=== PATIENT | female | born 1985 | race African-American/Black ===

== ENCOUNTER 2021-10-22 15:14 | Emergency (ER) | payer MEDICAID ==
[~2021-10-22] VITALS: Ht 157.5 cm; Wt 61.8 kg
[2021-10-22 15:28] VITALS: BP 98/59
[2021-10-22 18:28] LABS: CLARITY URINE CLEAR (CLEAR); COLOR URINE YELLOW (YELLOW); KETONES URINE NEGATIVE (NEGATIVE); LEUKOCYTE ESTERASE URINE TRACE (NEGATIVE); NITRITE URINE NEGATIVE (NEGATIVE); OCCULT BLOOD URINE NEGATIVE (NEGATIVE); PH URINE 5.5 (4.5-8.0); PROTEIN URINE NEGATIVE (NEGATIVE); SPECIFIC GRAVITY URINE 1.024 (1.005-1.030); UROBILINOGEN URINE 0.2 E.U./dL (0.2-1.0)
[2021-10-22] MEDS ORDERED: CEPH500C2 MT (18:58)
== END 2021-10-22 19:12 | disposition home or self-care (01) ==
LOC: ER 15:14
DX: R05.9 Cough, unspecified (principal); N39.0 Urinary tract infection, site not specified; K21.9 Gastro-esophageal reflux disease without esophagitis; R56.9 Unspecified convulsions; Z20.822 Contact with and (suspected) exposure to COVID-19; Z98.890 Other specified postprocedural states
CPT/HCPCS: 81003; 87426; 99283

== ENCOUNTER 2023-01-01 20:18 | Emergency (ER) | payer MEDICAID ==
[~2023-01-01] VITALS: Ht 157.5 cm; Wt 56.0 kg
[~2023-01-01 20:18] MED LIST: CEPH500C2 MT
[2023-01-01 20:26] VITALS: BP 97/71
[2023-01-01 21:25] LABS: BASOPHILS % 0.1 % (0.0-2.0); EOSINOPHILS % 1.2 % (0.0-5.0); HEMATOCRIT. 40.6 % (36.0-48.0); HEMOGLOBIN. 13.8 g/dL (12.0-16.0); LYMPHOCYTES % 36.4 % (20.0-50.0); MEAN CORPUSCULAR HEMOGLOBIN 33.1 pg (28.0-32.0); MEAN CORPUSCULAR VOLUME 97.4 fL (81.0-99.0); MEAN PLATELET VOLUME 7.7 fl (7.4-10.4); MONOCYTES % 6.3 % (2.0-8.0); PLATELET 182 x1000/uL (130-400); RED BLOOD CELL COUNT 4.17 mill/uL (4.2-5.4); RED CELL DISTRIBUTION WIDTH 13.4 % (11.6-14.6)
[2023-01-01 21:31] LABS: CHLORIDE 113 mEq/L (98-107)
[2023-01-02 01:12] LABS: CLARITY URINE CLEAR (CLEAR); COLOR URINE YELLOW (YELLOW); KETONES URINE NEGATIVE (NEGATIVE); LEUKOCYTE ESTERASE URINE 2+ (NEGATIVE); NITRITE URINE POSITIVE (NEGATIVE); OCCULT BLOOD URINE NEGATIVE (NEGATIVE); PH URINE 5.5 (4.5-8.0); PROTEIN URINE NEGATIVE (NEGATIVE); SPECIFIC GRAVITY URINE 1.022 (1.005-1.030); UROBILINOGEN URINE 0.2 E.U./dL (0.2-1.0)
[2023-01-02] MEDS ORDERED: CEPH500C2 MT (01:45)
[2023-01-02] MEDS ORDERED: LOPE2CAP MT (02:22)
== END 2023-01-02 01:59 | disposition home or self-care (01) ==
LOC: ER 20:18
DX: R39.15 Urgency of urination (principal); E03.9 Hypothyroidism, unspecified; Z90.49 Acquired absence of other specified parts of digestive tract; Z98.890 Other specified postprocedural states
CPT/HCPCS: 36415; 80053; 81003; 85025; 87186; 99283

== ENCOUNTER 2023-02-06 19:40 | Emergency (ER) | payer MEDICAID ==
[~2023-02-06] VITALS: Ht 157.5 cm; Wt 61.0 kg
[~2023-02-06 19:40] MED LIST changes: +LOPE2CAP MT
[2023-02-06 20:00] VITALS: BP 104/42
== END 2023-02-06 20:50 | disposition home or self-care (01) ==
LOC: ER 19:40
DX: G40.909 Epilepsy, unspecified, not intractable, without status epilepticus (principal); G89.29 Other chronic pain; F32.A Depression, unspecified; Z90.89 Acquired absence of other organs
CPT/HCPCS: 81025; 93005; 99283

== ENCOUNTER 2023-02-06 22:28 | Emergency (ER) | payer MEDICAID ==
[~2023-02-06] VITALS: Ht 157.5 cm; Wt 61.0 kg
[2023-02-06 22:31] VITALS: BP 108/52
== END 2023-02-07 00:10 | disposition home or self-care (01) ==
LOC: ER 22:28
DX: Z00.00 Encounter for general adult medical examination without abnormal findings (principal); F32.A Depression, unspecified; Z76.0 Encounter for issue of repeat prescription; Z90.89 Acquired absence of other organs
CPT/HCPCS: 99281

== ENCOUNTER 2023-10-25 11:03 | Emergency (ER) | payer MEDICAID ==
[~2023-10-25] VITALS: Ht 162.6 cm; Wt 61.4 kg
[2023-10-25 11:11] VITALS: BP 102/60; PULSE 63; RESP 16; O2SAT 100
[2023-10-25] MEDS ORDERED: DIPHENOXYLATE/ATROPINE 2.5/0.025MG TABLET PO ONE (13:15)
[2023-10-25] MEDS ORDERED: ACETAMINOPHEN 325MG TABLET PO ONE (13:15)
[2023-10-25 13:55] VITALS: TEMP 98.8
[2023-10-25] MEDS ORDERED: ONDA4TAB50 MT (14:02)
[2023-10-25] MEDS ORDERED: TOPUD MT (14:02)
[2023-10-25] MEDS ORDERED: DEXT30SU17 MT (14:02)
[2023-10-25] MEDS ORDERED: DIPH1TAB24 MT (14:02)
[2023-10-25] MEDS ORDERED: AZIT250T12 MT (14:02)
== END 2023-10-25 14:46 | disposition home or self-care (01) ==
LOC: ER 11:03
DX: U07.1 COVID-19 (principal); F32.A Depression, unspecified; E03.9 Hypothyroidism, unspecified; Z90.49 Acquired absence of other specified parts of digestive tract; Z98.890 Other specified postprocedural states
CPT/HCPCS: 81025; 99283

== ENCOUNTER 2024-01-29 15:51 | Emergency (ER) | payer MEDICAID ==
[~2024-01-29] VITALS: Ht 165.1 cm; Wt 73.0 kg
[~2024-01-29 15:51] MED LIST changes: +AZIT250T12 MT; +DEXT30SU17 MT; +DIPH1TAB24 MT; +ONDA4TAB50 MT; +TOPUD MT
[2024-01-29 16:02] VITALS: O2SAT 98
[2024-01-29] MEDS ORDERED: ATIVAN (16:02)
[2024-01-29 18:46] VITALS: BP 128/75; PULSE 78; RESP 13; TEMP 98.8
== END 2024-01-29 18:50 | disposition home or self-care (01) ==
LOC: ER 15:51
DX: R56.9 Unspecified convulsions (principal); F32.9 Major depressive disorder, single episode, unspecified; Z90.49 Acquired absence of other specified parts of digestive tract; Z98.51 Tubal ligation status
CPT/HCPCS: 93005; 99283; Z7610 ×2

== ENCOUNTER 2024-03-04 11:23 | Emergency (ER) | payer MEDICAID ==
[~2024-03-04] VITALS: Ht 157.5 cm; Wt 60.0 kg
[~2024-03-04 11:23] MED LIST changes: +ATIVAN
[2024-03-04 11:29] VITALS: BP 104/64; PULSE 72; RESP 19; TEMP 98; O2SAT 100
== END 2024-03-04 16:12 | disposition home or self-care (01) ==
LOC: ER 11:23
DX: J20.9 Acute bronchitis, unspecified (principal); Z91.040 Latex allergy status; Z86.59 Personal history of other mental and behavioral disorders; Z86.39 Personal history of other endocrine, nutritional and metabolic disease; Z98.890 Other specified postprocedural states; Z90.49 Acquired absence of other specified parts of digestive tract
CPT/HCPCS: 71045; 99283

== ENCOUNTER 2024-03-14 20:26 | Emergency (ER) | payer MEDICAID ==
[~2024-03-14] VITALS: Ht 157.5 cm; Wt 61.0 kg
[2024-03-14 21:46] VITALS: TEMP 98.7; O2SAT 98
[2024-03-14 23:06] LABS: CLARITY URINE CLEAR (CLEAR); COLOR URINE YELLOW (YELLOW); GLUCOSE URINE NEGATIVE (NEGATIVE); KETONES URINE NEGATIVE (NEGATIVE); LEUKOCYTE ESTERASE URINE NEGATIVE (NEGATIVE); NITRITE URINE NEGATIVE (NEGATIVE); OCCULT BLOOD URINE NEGATIVE (NEGATIVE); PH URINE 6.5 (4.5-8.0); PROTEIN URINE NEGATIVE (NEGATIVE); SPECIFIC GRAVITY URINE 1.018 (1.005-1.030); UROBILINOGEN URINE 0.2 E.U./dL (0.2-1.0)
[2024-03-14 23:26] LABS: UCG QC LOT# 798852; UCG SCREEN NEGATIVE
[2024-03-14] MEDS ORDERED: METR-167 MT (23:54)
[2024-03-15 00:03] VITALS: BP 124/78; PULSE 78; RESP 18
== END 2024-03-15 00:14 | disposition home or self-care (01) ==
LOC: ER 20:26
DX: N76.0 Acute vaginitis (principal); E03.9 Hypothyroidism, unspecified; Z98.890 Other specified postprocedural states; Z91.040 Latex allergy status; Z90.49 Acquired absence of other specified parts of digestive tract
CPT/HCPCS: 81003; 81025; 87210; 99284